=== PATIENT | female | born 1965 | race Caucasian/White ===

== ENCOUNTER 2019-05-31 19:12 | Emergency (ER) | payer OTHER ==
[~2019-05-31] VITALS: Ht 165.1 cm; Wt 75.0 kg
[~2019-05-31 19:12] MED LIST: ATEN-51 PO; CETI10TA19 PO; NITR-58 PO; SIME180C39 PO
[2019-05-31 19:16] VITALS: Ht 165.1 cm; Wt 75.0 kg
[2019-05-31 22:40] VITALS: BP 139/73; PULSE 87; RESP 15
== END 2019-05-31 22:40 | disposition home or self-care (01) ==
LOC: E/R 19:12
DX: N39.0 Urinary tract infection, site not specified (principal); I10 Essential (primary) hypertension; R07.89 Other chest pain
CPT/HCPCS: 36415; 80053; 81003; 83690; 84484; 85025; 93005; Z7502